=== PATIENT | female | born 1935 | race Caucasian/White ===

== ENCOUNTER 2016-09-26 10:41 | Emergency (ER) | payer OTHER ==
[~2016-09-26] VITALS: Ht 165.1 cm; Wt 62.6 kg
--- NOTE | 2016-09-26 11:03 | NUR ---
Dr Arrieta at bedside for MSE.
[2016-09-26] MEDS ORDERED: INSU100I4 SQ (11:06)
[2016-09-26 11:18] VITALS: BP 118/69
--- NOTE | 2016-09-26 11:18 | NUR ---
Patient discharged to home in stable conditon. Written and verbal after care instructions given. Patient verbalizes understanding of instructions. No further questions or concerns noted prior on leaving the ED.
[2016-09-26] MEDS ORDERED: FEXO-25 PO (11:24)
[2016-09-26] MEDS ORDERED: MULT-661 PO (11:24)
[2016-09-26] MEDS ORDERED: DIGO125T4 PO (11:24)
[2016-09-26] MEDS ORDERED: MAGNESIUM (11:24)
[2016-09-26] MEDS ORDERED: NITR0.4T SL (11:24)
[2016-09-26] MEDS ORDERED: ROSU20TA PO (11:24)
[2016-09-26] MEDS ORDERED: CHOL100062 PO (11:24)
[2016-09-26] MEDS ORDERED: UBID1CAP53 PO (11:24)
[2016-09-26] MEDS ORDERED: ALPR0.255 PO (11:24)
[2016-09-26] MEDS ORDERED: [UNRECOGNIZED DRUG - OTHER] PO (11:24)
[2016-09-26] MEDS ORDERED: OMEP20TA68 PO (11:24)
[2016-09-26] MEDS ORDERED: AMLO2.5T PO (11:24)
[2016-09-26] MEDS ORDERED: ENZYMES PO (11:24)
[2016-09-26] MEDS ORDERED: TRAM50TA2 PO (11:24)
[2016-09-26] MEDS ORDERED: LEVO50TA8 PO (11:24)
[2016-09-26] MEDS ORDERED: CARV12.52 PO (11:24)
[2016-09-26] MEDS ORDERED: ASPI81TA31 PO (11:24)
[2016-09-26] MEDS ORDERED: FISH12002 PO (11:24)
== END 2016-09-26 11:24 | disposition home or self-care (01) ==
LOC: ER 10:41
DX: R10.13 Epigastric pain (principal); K21.9 Gastro-esophageal reflux disease without esophagitis; F41.9 Anxiety disorder, unspecified; M19.90 Unspecified osteoarthritis, unspecified site; E11.9 Type 2 diabetes mellitus without complications; Z88.0 Allergy status to penicillin; Z88.2 Allergy status to sulfonamides; Z88.6 Allergy status to analgesic agent; Z88.8 Allergy status to other drugs, medicaments and biological substances
CPT/HCPCS: A4663

== ENCOUNTER 2017-12-18 22:52 | Emergency (ER) | payer OTHER ==
[~2017-12-18] VITALS: Ht 165.1 cm; Wt 66.2 kg
[~2017-12-18 22:52] MED LIST: ALPR0.255 PO; AMLO2.5T PO; ASPI81TA31 PO; CARV12.52 PO; CHOL100062 PO; DIGO-31 PO; ENZYMES PO; FEXO-25 PO; FISH12002 PO; INSU100I4 SQ; LEVO50TA8 PO; MAGNESIUM; MULT-661 PO; NITR0.4T SL; OMEP20TA5 PO; ROSU20TA PO; TRAM50TA2 PO; UBID1CAP54 PO; [UNRECOGNIZED DRUG - OTHER] PO
--- NOTE | 2017-12-18 23:08 | NUR ---
PATIENT WALKED INTO ER WITH STEADY GAIT FOR C/O ACCIDENTLY TAKING AMLODIPINE 2.5MG TWICE INSTEAD OF ONE TIME. PATIENT DENIES ANY DISTRESS,CP,SOB,DIZZINESS
--- NOTE | 2017-12-18 23:11 | NUR ---
DR MARIE INTO EVAL PATIENT
--- NOTE | 2017-12-18 23:55 | NUR ---
PATIENT IN ROOM WATCHING TV WITH NO DISTRESS NOTED
[2017-12-19 02:07] VITALS: BP 153/59
--- NOTE | 2017-12-19 02:08 | NUR ---
Patient discharged to home in stable conditon. Written and verbal after care instructions given. Patient verbalizes understanding of instructions. WALKED OUT OF ER WITH NO DISTRESS NOTED
== END 2017-12-19 02:09 | disposition home or self-care (01) ==
LOC: ER 22:53
DX: T46.1X1A Poisoning by calcium-channel blockers, accidental (unintentional), initial encounter (principal); E11.9 Type 2 diabetes mellitus without complications; I10 Essential (primary) hypertension; E03.9 Hypothyroidism, unspecified; I25.10 Atherosclerotic heart disease of native coronary artery without angina pectoris; E78.5 Hyperlipidemia, unspecified; K21.9 Gastro-esophageal reflux disease without esophagitis; I48.91 Unspecified atrial fibrillation; Z90.710 Acquired absence of both cervix and uterus; Z90.49 Acquired absence of other specified parts of digestive tract; Z95.0 Presence of cardiac pacemaker; Z86.73 Personal history of transient ischemic attack (TIA), and cerebral infarction without residual deficits; Z88.0 Allergy status to penicillin; Z88.2 Allergy status to sulfonamides; Z88.5 Allergy status to narcotic agent; Z88.8 Allergy status to other drugs, medicaments and biological substances; Z79.4 Long term (current) use of insulin; Y92.89 Other specified places as the place of occurrence of the external cause
CPT/HCPCS: A4663

== ENCOUNTER → 2024-07-18 | Emergency (ER) | payer OTHER, MEDICARE ==
[~2024-07-18] VITALS: Ht 170.2 cm; Wt 66.7 kg
[~2024-07-18] MED LIST changes: -AMLO2.5T PO; +AMLO2.5T4 PO; +INSULIN GLARGINE,HUM 300 UNITS/3 ML CARTRIDGE SQ ONE; +MISCELLANEOUS MED SQ ONE; -ROSU20TA PO; +ROSU20TA2 PO
[2024-07-18 23:44] VITALS: BP 138/78; O2SAT 98
== END | disposition home or self-care (01) ==
LOC: ER 23:25
DX: E11.9 Type 2 diabetes mellitus without complications (principal); F41.9 Anxiety disorder, unspecified; I11.9 Hypertensive heart disease without heart failure; I48.91 Unspecified atrial fibrillation; K21.9 Gastro-esophageal reflux disease without esophagitis; M19.90 Unspecified osteoarthritis, unspecified site; Z79.4 Long term (current) use of insulin; Z79.890 Hormone replacement therapy; Z79.899 Other long term (current) drug therapy; Z86.73 Personal history of transient ischemic attack (TIA), and cerebral infarction without residual deficits; Z88.0 Allergy status to penicillin; Z88.2 Allergy status to sulfonamides; Z88.5 Allergy status to narcotic agent; Z88.7 Allergy status to serum and vaccine; Z90.49 Acquired absence of other specified parts of digestive tract
CPT/HCPCS: 99284; 96372; J1815 ×2; A4606; A4663